=== PATIENT | female | born 1965 | race Caucasian/White ===

== ENCOUNTER → 2017-05-22 | Outpatient (CLI) | payer BC ==
[~2017-05-22] MED LIST: Acyclovir400 MG; CYCL10 PO; DIPH50 PO; ESTR.1TPB TOP; HYDACE5 PO; NAPR550 PO; OXYACE5T PO; Pepcid40 MG PO; Percocet 5-3251 EACH PO; RXCYCL10 PO; RXNAPNA550 PO; Vivelle-Dot1 EAC1 TD
[2017-05-24 13:13] LABS: HPV Genotype 16 Not Detected (NOTDET); HPV Genotype 18 Not Detected (NOTDET); HPV High Risk Other Not Detected (NOTDET)
== END | disposition home or self-care (01) ==
LOC: OLS 14:49
PROVIDERS: Obstetrics & Gynecology Gynecology
DX: Z12.72 Encounter for screening for malignant neoplasm of vagina (principal)
CPT/HCPCS: 87624; G0123

== ENCOUNTER → 2018-09-10 | Outpatient (CLI) | payer BC ==
[2018-09-12 15:06] LABS: HPV 16 Negative (Negative); HPV 18 Negative (Negative); HPV OTHER HR TYPES Negative (Negative)
== END | disposition home or self-care (01) ==
LOC: LAB 17:55 → LAB SHORT 17:55
PROVIDERS: Obstetrics & Gynecology Gynecology
DX: Z12.72 Encounter for screening for malignant neoplasm of vagina (principal)
CPT/HCPCS: 87624; G0123

== ENCOUNTER → 2019-02-03 | Outpatient (CLI) | payer BC | END | disposition home or self-care (01) | LOC: LAB SHORT 13:53 → PLD 13:53 | DX: M89.8X9 Other specified disorders of bone, unspecified site (principal); M67.40 Ganglion, unspecified site; M79.673 Pain in unspecified foot | CPT/HCPCS: 88304 ==

== ENCOUNTER 2020-06-30 06:46 | Day surgery (SDC) | payer BC ==
[~2020-06-30] VITALS: Ht 162.6 cm; Wt 98.4 kg
== END 2020-06-30 08:47 | disposition home or self-care (01) ==
LOC: ORSCSDS 06:46
PROVIDERS: Surgery
PROC: 0DBK8ZX Excision of Ascending Colon, Via Natural or Artificial Opening Endoscopic, Diagnostic (ICD-10-PCS; principal; 2020-06-30 08:00)
DX: Z12.11 Encounter for screening for malignant neoplasm of colon (principal); Z80.0 Family history of malignant neoplasm of digestive organs; D12.2 Benign neoplasm of ascending colon; E66.01 Morbid (severe) obesity due to excess calories; Z68.36 Body mass index [BMI] 36.0-36.9, adult; Z79.899 Other long term (current) drug therapy
CPT/HCPCS: 88305; J0330; J0461; J2405; J2704; J7120

== ENCOUNTER 2021-05-07 16:22 | Emergency (ER) | payer BC ==
[~2021-05-07] VITALS: Ht 162.6 cm; Wt 104.3 kg
== END 2021-05-07 17:59 | disposition home or self-care (01) ==
LOC: ER 16:22
DX: H11.32 Conjunctival hemorrhage, left eye (principal); R51.9 Headache, unspecified
CPT/HCPCS: 99282

== ENCOUNTER → 2021-09-13 | Outpatient (CLI) | payer BC ==
[2021-09-14 09:10] LABS: HIV AB/P24 AG SCREEN Non Reactive (Non Reactive)
== END | disposition home or self-care (01) ==
LOC: LAB 07:25 → LAB SHORT 07:25
PROVIDERS: Dentist General Practice
DX: T14.8XXA Other injury of unspecified body region, initial encounter (principal)
CPT/HCPCS: 87389

== ENCOUNTER 2021-10-26 08:33 | Day surgery (SDC) | payer BC | END 2021-10-31 23:13 | disposition home or self-care (01) | LOC: MOI MAM 08:33 | DX: D24.1 Benign neoplasm of right breast (principal) | CPT/HCPCS: 19081; 88305; A4648 ==